=== PATIENT | female | born 2000 | race Caucasian/White ===

== ENCOUNTER 2020-04-03 13:42 | Outpatient (REF) | payer OTHER, SELFPAY ==
[2020-04-04 09:41] LABS: Rubeola IgG (Measles) >300.00 AU/mL
[2020-04-04 12:46] LABS: Rubella IgG Antibody 1.55 index
[2020-04-05 05:41] LABS: HBS Num1 0.87 mIU/mL (0-7.99); HBc Num1 0.11 S/CO (0.00-0.79); HBsAGNum1 0.22 S/CO (0.00-0.99); Hepatitis B Core Antibody Nonreactive (Nonreactive); Hepatitis B Surface Antigen Negative (Negative); ~Hepatitis B Surface Antibody NONREACTIVE (Nonreactive)
== END 2020-04-03 13:43 | disposition home or self-care (01) ==
LOC: HO.HMGCLDS 13:42
PROVIDERS: PCP Internal Medicine; Visit Provider Hospitalist
DX: Z00.00 Encounter for general adult medical examination without abnormal findings (principal)
CPT/HCPCS: 86704; 86706; 86735; 86762; 86765; 86787; 87340

== ENCOUNTER 2023-03-07 12:26 | Outpatient (AMB) | payer OTHER, SELFPAY ==
--- NOTE | 2023-03-07 12:40 | MHC.OFFWIV ---
Intake Vital Signs 03/07/23 12:42 Weight 88.904 kg BP 120/80 Blood Pressure Location Lt brachial Position Sitting Pulse 83 Pulse Source Pulse Oximeter Pulse Oximetry (%) 98 Oxygen Delivery Method Room Air Intake Visit Reasons: EST/ BV? Intake Note: Patient here because she believes she has BV, she has been experiencing itchyness and discharge which started yesterday. Patient Tobacco Use Status: Never used Tobacco Allergies No Known Allergies Allergy (Verified 03/07/23 12:43) Do you need a note to return to daycare/school/sports/work: No HPI HPI Comments History of Present Illness Details 1308 22-year-old female presents with a few days of vaginal discharge, white, thick, patient thinks it is BP she has had a before. Also reports some associated itchiness. Denies concerns for STDs. Denies new soaps. Denies fevers, chills, nausea, vomiting, abdominal pain, chance of , headache, vision changes, dizziness and weakness. Physical exam benign Concern for yeast infection versus BV or both. Based off patient history and physical exam lower suspicion for STD. Unlikely . Unlikely cellulitis Plan metronidazole, Diflucan. Educated patient on diagnosis and treatment plan, answered all question, patient verbalizes understanding. At this time patient will be discharged home, advised to return with new or worsening symptoms. Educated on worrisome signs and symptoms and when to return. At this time I feel comfortable discharge home. [facility] Social History Patient Tobacco Use Status: Never used Tobacco Review of Systems Const Details: Constitutional : No Weight loss, No Fever, No Chills, No Fatigue, No Malaise ENT/Mouth : No sore throat, No Rhinorrhea Eyes: No Eye Pain, No Swelling, No Redness Cardiovascular : No Chest Pain, No SOB, No Dyspnea on Exertion, No Orthopnea, No Edema, No Palpitations Respiratory : No Cough, No Sputum, No Wheezing Gastrointestinal : No Nausea, No Vomiting, No Diarrhea, No Constipation, No abdominal Pain, No Hematochezia, No Melena, + vaginal dc Genitourinary : No Dysuria, No Urinary Frequency, No Hematuria, Musculoskeletal : No joint pain, No Myalgias, No Joint Swelling Skin : No Skin Lesions, No rash Neuro : No Weakness, No Numbness, No Dizziness, No Headache Psych : No Anxiety/Panic, No Depression All other systems reviewed and are negative All systems reviewed & are unremarkable except as noted in HPI and below Physical Exam Vital Signs: Last Vital Signs Pulse 83 03/07/23 12:42 BP 120/80 03/07/23 12:42 Pulse Ox 98 03/07/23 12:42 Oxygen Delivery Method Room Air 03/07/23 12:42 vss Appearance: Alert.? Oriented X3.? No acute distress.? Head: Normocephalic, atraumatic, no step-offs or deformities Eyes: Pupils equal, round and reactive to light.? CVS: Normal heart rate and rhythm.? Pulses normal.? Respiratory: No respiratory distress.? Breath sounds normal.? Abdomen: Soft and nontender.? Skin: Skin warm and dry.? Normal skin color.? Normal skin turgor.? Extremities: No lower extremity edema.? No calf ttp. 5/5 strength to bilateral upper and lower extremities Neuro: Oriented X 3.? No motor deficit.? No sensory deficit. CN 2-12 intact Sensitive exam: Deferred Assessment & Plan Assessment & Plan (1) Vaginal discharge: Code(s): N89.8 - Other specified noninflammatory disorders of vagina Plan Take your medications as prescribed. If you were prescribed antibiotics today, it is important that you take your medication to their entirety, do not skip any doses, do not finish them early. Follow-up with your primary care provider this week. Return to the emergency department with new or worsening symptoms. Such as fevers, chills, chest pain, shortness of breath, nausea, vomiting, dizziness, headache, vision changes, lethargy In case of emergency call 911 Orders: Orders Bacterial Vaginosis Panel Today N89.8 - Other specified noninflammatory disorders of vagina Medications: New metronidazole 500 mg PO BID 14 tabs 0RF 7 days fluconazole 150 mg PO Q3D 2 tabs 0RF 2 doses Coding Level of Care Code Est Pt Level 3 (12526) Diagnoses Vaginal discharge N89.8
[2023-03-07 12:42] VITALS: BP 120/80; PULSE 83; O2SAT 98
== END 2023-03-07 14:47 | disposition home or self-care (01) ==
PROVIDERS: PCP Internal Medicine; Visit Provider Physician Assistant
DX: N89.8 Other specified noninflammatory disorders of vagina (principal)
CPT/HCPCS: 99213

== ENCOUNTER 2023-03-07 16:18 | Outpatient (REF) | payer OTHER, SELFPAY ==
[2023-03-08 12:50] LABS: BV Int Neg Control Negative (Negative); BV Int Pos Control Positive (Positive)
== END 2023-03-07 16:19 | disposition home or self-care (01) ==
LOC: HO.LNP 16:18
PROVIDERS: Visit Provider Physician Assistant
DX: N89.8 Other specified noninflammatory disorders of vagina (principal)
CPT/HCPCS: 87480; 87510; 87660

== ENCOUNTER 2024-10-07 13:39 | Emergency (ER) | payer SELFPAY ==
--- NOTE | ~2024-10-07 | XR_ITS ---
EXAMINATION: XR CHEST CLINICAL INFORMATION: productive cough COMPARISON: None available. TECHNIQUE: 2 views of the chest were obtained. FINDINGS: No consolidation, pleural effusion or pneumothorax. No hyperinflation. Cardiomediastinal silhouette size is normal. Osseous structures are intact. XR/XR chest 2V IMPRESSION: No acute airspace disease. Negative exam. Electronically signed by: Jeff Nina MD 10/07/2024 02:21 PM EDT
[2024-10-07 13:54] VITALS: BP 117/79; PULSE 103; RESP 16; TEMP 36.6; O2SAT 100; BMI 30.7
--- NOTE | 2024-10-07 13:55 | ED_ITS ---
HPI - General Adult General Chief complaint: Upper Respiratory Symptoms Stated complaint: cough up green mucus Time Seen by Provider: 10/07/24 15:39 Source: patient, RN notes reviewed and old records reviewed Mode of arrival: ambulatory Limitations: no limitations History of Present Illness ED Provider: Shy [facility] narrative: Patient is a 24-year-old female presenting with complaint of coryza, hoarse voice, productive cough with yellow sputum since Friday. Denies fevers/chills but feels weak. No known sick contacts. Denies difficulty swallowing. MD complaint: cough Onset (ago): day(s) Related Data Previous Rx's ?Medication ?Instructions ?Recorded valacyclovir 500 mg tablet 500 mg PO BID 3 days #6 tabs 10/17/20 fluconazole 150 mg tablet 150 mg PO Q3D 2 doses #2 tabs 03/07/23 metronidazole 500 mg tablet 500 mg PO BID 7 days #14 tabs 03/07/23 Allergies Allergy/AdvReac Type Severity Reaction Status Date / Time No Known Allergies Allergy Verified 10/07/24 13:55 Review of Systems Review of Systems: As per HPI Yes all other systems are reviewed and are negative Constitutional: Constitutional: Reports as per HPI [facility] Social History Social History Patient Tobacco Use Status: Never used Tobacco Physical Exam ED Vital Signs: Vital Signs - 24 hr 10/07/24 13:54 Temperature 98 F Pulse Rate 103 H Respiratory Rate 16 Blood Pressure 117/79 Pulse Oximetry 100 Oxygen Delivery Method Room Air BMI result Body Mass Index 30.7 Vital signs have been reviewed and appear to be correct. Blood pressure normal. Heart rate slightly tachycardic. Respiratory rate normal. Temperature normal. Oxygen saturation normal. Const General: cooperative, healthy appearing and no acute distress Orientation/consciousness: oriented to person, oriented to place, oriented to time and patient oriented x3 Limitations: no limitations HENMT Head: Yes normocephalic and Yes atraumatic Ears: hearing grossly normal bilaterally, external ears normal, TM's normal bilaterally, EAC's normal, mastoids normal bilaterally and no periauricular adenopathy General nose exam: Normal external nose present and Normal nasal mucous membranes and turbinates present Face and sinus: Yes face symmetric Mouth: Normal oral and palatal mucosa present, lip normal, tongue normal, oropharynx normal, moist mucous membranes, no drooling and no trismus Throat: Yes tonsils normal and Yes uvula midline Eyes Pupils: Equal, round and reactive pupils present Neck Neck: Yes normal visual inspection, Yes no lymphadenopathy and Yes supple Resp Effort & Inspection: normal respiratory effort and able to speak in complete sentences Auscultation: clear to auscultation bilaterally Cardio Rate: regular rate Rhythm: regular rhythm Heart sounds: S1 normal heart sound present and S2 normal heart sound present GI Palpation (GI): Soft to palpation and nontender Auscultation: normoactive bowel sounds General: Yes no CVA tenderness Back/Spine/Pelvis Back: no CVA tenderness Skin General skin exam: elasticity normal and turgor normal Neuro General: oriented to person, oriented to place, oriented to time, patient oriented x3, moves all extremities, no focal motor deficits and CN's II-XI intact bilaterally Cranial nerves: Yes Equal, round and reactive pupils present Cognition (Neuro): normal cognition Extrem General: Yes full ROM, Yes no pedal edema and Yes no calf tenderness Psych Mental Status: mental status grossly normal Affect: normal affect Thought process: Normal thought process present Course Course Course Narrative: This is a rapid medical exam performed by Dione Begum NP: Additional HPI, ROS, PE not included below will be deferred to primary provider. Patient is a 24-year-old female presenting with complaint of coryza, hoarse voice, productive cough with yellow sputum since Friday. Denies fevers/chills but feels weak. Plan: strep and viral swabs, cxr Medical Decision Making Medical Decision Making MDM Narrative: Patient is a 24-year-old female presenting with complaint of coryza, hoarse voice, productive cough with yellow sputum since Friday. On exam patient is awake, A+Ox3, VS WNL, afebrile, normal neurological exam without focal deficits, physical exam findings as above. Given reported symptoms and physical exam findings, initial differential includes but is not limited to viral illness, COVID, flu, RSV, strep pharyngitis, bronchitis, pneumonia. Strep and viral swabs negative. X-ray chest notable for no evidence of pneumonia. My interpretation is in agreement with the radiologist's interpretation. Results discussed with patient and all questions answered. Advised Tylenol, ibuprofen, adequate rest, adequate fluid intake, discussed with patient that she can use nasal saline spray and gargle with warm salt water. Follow up with primary care provider as needed. Return precautions discussed. Patient verbalized understanding of and agreement with plan. Differential Diagnosis Differential Diagnoses: The differential diagnosis associated with the p resentation includes As per [facility] Admission/Observation Consideration of admission/observation: Escalation of care including admi ssion/observation considered Patient would have been admitted to the hospital had their work up had any findings where hospital admission was appropriate and their clinical presentation warranted hospital admission. Lab Data [facility] Lab Attestation statement: I reviewed the patient's lab results. as per [facility] Labs: Lab Results 10/07/24 Range/Units 14:02 Influenza Type A (PCR) NEGATIVE (Negative) Influenza Type B (PCR) NEGATIVE (Negative) RSV RNA Qual (PCR) NEGATIVE (Negative) SARS-CoV-2 RNA (RT-PCR) NEGATIVE (Negative) S. pyogenes GrpA MARY Negative (Negative) Independent Interpretation I performed an independent interpretation of an: Plain X-Ray Interpretation: No evidence of pneumonia on chest x-ray Radiology Impression Discussion of test interpretation with radiology: I have reviewed the radiologist's reading. Radiologist Impression: XR/XR chest 2V IMPRESSION: No acute airspace disease. Negative exam. External Record Review External record reviewed: Inpatient record, Office record and Outpatient record Discharge Plan Discharge Clinical Impression: Upper respiratory infection, viral Patient Disposition: Home, Self-Care Instructions: Upper Respiratory Infection (DC), Viral Syndrome (ED) Additional Instructions: You were evaluated in the emergency department today for sore throat and cough. Your Covid, flu, RSV, and strep tests were all negative. Your chest x-ray did not show evidence of pneumonia. Your symptoms are likely related to a viral illness which will resolve on its own with time and rest. You should ensure adequate fluid intake, and can use Tylenol 650 mg or ibuprofen 600 mg every 6 hours as needed for fever or discomfort. We also recommend using over the counter nasal saline spray to thin your mucous. Please follow-up with your primary care provider this week. Return to the emergency department if you develop chest pain, worsening shortness of breath, difficulty swallowing, fever 100.4? F or greater or any other concerning symptoms. Prescriptions: No Action M-M-R II (PF) 1,000-12,500 TCID50/0.5 mL recon soln 0.5 ml subcut ONCE Qty: 0.5 0RF valacyclovir 500 mg tablet 500 mg PO BID 3 Days Qty: 6 1RF fluconazole 150 mg tablet 150 mg PO Q3D 0 Days Qty: 2 0RF metronidazole 500 mg tablet 500 mg PO BID 7 Days Qty: 14 0RF Interventions: ED Discharge Assessment Last Done: 10/07/24 15:44 Print Language: Mexican
[2024-10-07 14:17] LABS: IDNOW Serial# 55D5AD1C
[2024-10-07 14:18] LABS: Strep A Nucleic Acid Negative (Negative)
[2024-10-07 14:50] LABS: Influenza A PCR NEGATIVE (Negative); Influenza B PCR NEGATIVE (Negative); Resp Syncy Virus RNA Qual PCR NEGATIVE (Negative); SARS COV2 PCR INHOUSE NEGATIVE (Negative)
[2024-10-07 15:44] VITALS: BP 104/63; PULSE 66; RESP 16; TEMP 36.6; O2SAT 100
--- OUTSIDE RECORDS SUMMARY | 2024-10-07 18:11 | XMS_ITS | Clinical Summary ---
Author Organization [facility] ity Address [address] [place] [address] Care Team Providers Care Washer Engineer Name Role Phone Ana Robles MD Primary Care Provider [phone] Surgical History Surgery Date Site/Laterality Comments WISDOM TOOTH EXTRACTION PROCEDURE: HISTORICAL WISDOM TEETH EXTRACTION Medical History Medical History Date Comments Myopia DX:Myopia Family History Medical History Relation Name Comments No Known Problems Brother Other: Gout Father No Known Problems Maternal Grandfather No Known Problems Maternal Grandmother Alcohol/Drug Mother drug abuse Breast cancer Neg Hx Colon cancer Neg Hx Relation Name Status Comments Brother Alive Father Alive Maternal Grandfather Other Maternal Grandmother Other Mother Alive Paternal Grandfather Other Paternal Grandmother Other Social History Tobacco Use Types Packs/Day Years Used Date Smoking Tobacco: Never Smokeless Tobacco: Never Alcohol Use Standard Drinks/Week Comments Yes 0 (1 standard drink = 0.6 oz pur e alcohol) Comments Unknown Sex and Gender Information Value Date Recorded Sex Assigned at Not on file Legal Sex Female 8:20 PM EST Gender Identity Not on file Sexual Orientation Not on file Obstetrics History Last Filed Vital Signs Vital Sign Reading Time Taken Comments Blood Pressure 110/66 07/21/2023 11:44 AM EST Pulse 68 07/21/2023 11:44 AM EST Temperature - - Respiratory Rate - - Oxygen Saturation - - Inhaled Oxygen Concentration - - Weight 84.2 kg (185 lb 9.6 oz) 07/21/2023 11:44 AM EST Height 154.9 cm (5' 1 ) 07/21/2023 11:44 AM EST Body Mass Index 35.07 07/21/2023 11:44 AM EST Plan of Treatment Health Maintenance Due Date Last Done Comments HPV Vaccines (1 - 3-dose series) 2014 Hepatitis B Vaccines (1 of 3 - 19+ 3-dose series) 2018 Depression Screening 06/01/2022 HIV Screening 06/01/2022 Hepatitis C Screening 06/01/2022 Social Influencers of Health Screening 06/01/2022 Cervical Cancer Screening: P ap Smear 04/17/2023 04/17/2020 COVID-19 Vaccine (1 - 2023-2 5 season) 2024 Influenza Vaccine (Season Ended) 2025 03/15/2021 DTaP,Tdap,and Td Vaccines (4 - Td or Tdap) 05/10/2031 05/10/2021, 10/02/2000, 1999 MMR Vaccines Completed 10/02/2000 HIB Vaccines Aged Out No longer eligi ble based on patient's age to complete this topic Hepatitis A Vaccines Aged Out No long er eligible based on patient's age to complete this topic IPV Vaccines Aged Out No longer eligi ble based on patient's age to complete this topic Meningococcal ACWY Vaccine Aged Out N o longer eligible based on patient's age to complete this topic Meningococcal B Vaccine Aged Out No l onger eligible based on patient's age to complete this topic Pneumococcal Vaccine: Pediatrics (0 to 5 Years) and At-Risk Patients (6 to 64 Years) Aged Out No longer eligible b ased on patient's age to complete this topic RSV Immunization Patients Under 20 months Aged Out No longer eligible b ased on patient's age to complete this topic Varicella Vaccines Aged Out No longer eligible based on patient's age to complete this topic Procedures Procedure Name Priority Date/Time Associated Diagnosis Comments PAP SMEAR Routine 04/17/2020 from Last 3 Months or Most Recently Relevant to Health Maintenance Results * Pap smear (04/17/2020) 04/17/2020 Narrative HISTORICAL TESTING LAB RESULTING AGENCY - 04/19/2020 11:10 AM EDT [id number] THINPREP PAP, IMAGED: NEGATIVE FOR SQUAMOUS INTRAEPITHELIAL LESION AND MALIGNANCY . CLUE CELLS ARE PRESENT. MARIBETH CARBAJAL(ASCP) (CASE ELECTRONICALLY SIGNED 04 19 2020) ADEQUACY: SATISFACTORY ENDOCERVICAL/TRANSFORMATION ZONE COMPONENT PRESENT. SOURCE: THINPREP PAP HPV IF ASCUS, CERVICAL, IMAGED CLINICAL INFORMATION: HPV IF DIAGNOSIS OF ASCUS. PAP HX NEG, NO LMP RECORDED [Z12.4, Z01.419] Juju BUCKLEY LAB CYTOLOGY ORDERABLES Fin al Result HISTORICAL TESTING LAB RESULTING AGENCY from Last 3 Months or Most Recently Relevant to Health Maintenance Care Teams Washer Engineer Relationship Specialty Start Date End Date Ana Robles MD PCP - General 10/13/23
== END 2024-10-07 15:59 | disposition home or self-care (01) ==
PROVIDERS: Registered Nurse Emergency; Emergency Provider Emergency Medicine; PCP Internal Medicine
DX: J06.9 Acute upper respiratory infection, unspecified (principal); R05.9 Cough, unspecified; Z03.818 Encounter for observation for suspected exposure to other biological agents ruled out
CPT/HCPCS: 0241U; 71046; 87651; 99282; 99283

== ENCOUNTER → 2024-10-07 13:56 | Outpatient (BNV) | payer OTHER, SELFPAY | PROVIDERS: PCP Internal Medicine; Visit Provider Radiology Diagnostic Radiology | DX: R05.9 Cough, unspecified (principal) | CPT/HCPCS: 71046 ==

== ENCOUNTER 2025-02-17 10:46 | Outpatient (AMB) | payer OTHER, SELFPAY ==
[2025-02-17 11:04] VITALS: BP 120/80; PULSE 63; TEMP 37; O2SAT 99
--- NOTE | 2025-02-17 11:04 | MHC.OFFWIV ---
Intake Vital Signs 02/17/25 11:04 Height 5 ft BMI Reason not done Patient refused/unable BP 120/80 Blood Pressure Location Lt brachial Position Sitting Pulse 63 Pulse Source Pulse Oximeter Temp 98.6 F Temp Source Oral Pulse Oximetry (%) 99 Oxygen Delivery Method Room Air Intake Visit Reasons: EP STD check, vaginal itching Intake Note: pt is here for STD, vaginal itching since yesterday morning Patient Tobacco Use Status: Never used Tobacco Allergies No Known Allergies Allergy (Verified 02/17/25 11:04) Do you need a note to return to daycare/school/sports/work: No HPI HPI Comments History of Present Illness Details History of Present Illness - The patient is a 24-year-old female presenting with vaginal discomfort. - The discomfort is described as an uncomfortable pressure without burning or itching. - The patient reports a slight vaginal discharge but no burning sensation during menstruation. - There is no history of increased urinary frequency or urgency. - The patient denies any nausea, vomiting, fever, or abdominal pain. - The patient is concerned about a possible sexually transmitted infection due to recent activity. - The patient has no history of similar symptoms. - She due for her period today. - She denies urinary frequency, urgency, dysuria, hematuria, vaginal discharge, odor, fever, chills, back pain. Physical Exam General: Cooperative, healthy appearing, comfortable, no acute distress and well developed Orientation: Patient oriented x3 Respiratory: Normal respiratory effort and able to speak in complete sentences. Clear to auscultation bilaterally Cardiovascular: Regular rate and rhythm. Normal S1 and S2 GI: Normal to inspection. Soft to palpation and nontender, non-distended. Skin: No rashes or lesions noted Patient was informed and verbally consented to the use of an ambient scribe for clinic note documentation during this visit. [facility] Social History Patient Tobacco Use Status: Never used Tobacco Review of Systems Const All systems reviewed & are unremarkable except as noted in HPI and below Physical Exam Vital Signs: Last Vital Signs Temp 98.6 F 02/17/25 11:04 Pulse 63 02/17/25 11:04 BP 120/80 02/17/25 11:04 Pulse Ox 99 02/17/25 11:04 Oxygen Delivery Method Room Air 02/17/25 11:04 Results AMB Urinalysis, Automated UA Leukoctes 15 David/uL Last Edit by Matt Swanson CMA on 02/17/25 11:36 UA Nitrite Negative Last Edit by Matt Swanson CMA on 02/17/25 11:36 UA Urobilinogen 0.2 mg/dL Last Edit by Matt Swanson CMA on 02/17/25 11:36 UA Protein 15 mg/dL Last Edit by Matt Swanson CMA on 02/17/25 11:36 UA pH 6.0 Last Edit by Matt Swanson CMA on 02/17/25 11:36 UA Blood 80 Sudhakar/uL Last Edit by Matt Swanson CMA on 02/17/25 11:36 UA Specific [place] 1.030 Last Edit by Matt Swanson CMA on 02/17/25 11:36 UA Ketone Negative Last Edit by Matt Swanson CMA on 02/17/25 11:36 UA Bilirubin 0 mg/dL Last Edit by Matt Swanson CMA on 02/17/25 11:36 UA Glucose 0 mg/dL Last Edit by Matt Swanson CMA on 02/17/25 11:36 AMB Test Urine AMB Test Urine Negative Last Edit by Matt Swanson CMA on 02/17/25 11:37 Results Reviewed Results Reviewed: Laboratory Last Values Urine pH (Auto) 6.0 02/17/25 11:13 Specific [place] (Auto) 1.030 02/17/25 11:13 Urine Protein (Auto) 15 mg/dL H* 02/17/25 11:13 Glucose (UA)(Auto) 0 mg/dL 02/17/25 11:13 Urine Ketones (Auto) Negative 02/17/25 11:13 Urine Blood (Auto) 80 Sudhakar/uL 02/17/25 11:13 Urine Nitrite (Auto) Negative 02/17/25 11:13 Urine Bilirubin (Auto) 0 mg/dL 02/17/25 11:13 Urine Urobilinogen (Auto) 0.2 mg/dL 02/17/25 11:13 Leukocyte Esterase (Auto) 15 David/uL H* 02/17/25 11:13 Tst Clinic Negative 02/17/25 11:13 Assessment & Plan Assessment & Plan (1) Pelvic pain: Code(s): R10.2 - Pelvic and perineal pain Plan Most likely UTI vs BV vs trich vs STD UA is +leuko, 2+blood HCG is negative Plan - Urinalysis shows signs of infection; send urine for culture to confirm diagnosis. - Await culture results before prescribing antibiotics. - Will send bacterial vaginosis panel - Test for gonorrhea and chlamydia. - Follow up with the patient once results are available. Orders: Orders CT NG by PCR Vag/Cerv Today Z13.9 - Encounter for screening, unspecified AMB Urinalysis Automated Today Z13.9 - Encounter for screening, unspecified Urine Culture Today N39.0 - Urinary tract infection, site not specified Bacterial Vaginosis Panel Today Z13.9 - Encounter for screening, unspecified AMB HCG Urine Test Today Z13.9 - Encounter for screening, unspecified Coding Level of Care Code Est Pt Level 3 (19742) Diagnoses Pelvic pain R10.2
--- OUTSIDE RECORDS SUMMARY | 2025-02-17 12:12 | XMS_ITS | Clinical Summary ---
Author Organization [facility] [address] [place] [address] [place] [id number] Phone Care Team Providers Care Supervisor Sandblaster Name Role Phone Ana Robles MD Primary Care Provider [phone] Surgical History Surgery Date Site/Laterality Comments WISDOM [...] of 3 - 19+ 3-dose series) 2018 HIV Screening 06/01/2022 Hepatitis C Screening 06/01/2022 Social Influencers of Health Screening 06/01/2022 Cervical Cancer Screening: P ap Smear 04/17/2023 04/17/2020 COVID-19 Vaccine (1 - 2023-2 5 season) 2024 Depression Screening 06/23/2024 Influenza Vaccine (#1) 2025 03/15/2021 DTaP,Tdap,and Td Vaccines (4 - [...] 5 Years) and At-Risk Patients (6 to 49 Years) Aged Out No longer eligible b [...] RESULTING AGENCY - 04/19/2020 11:10 AM EDT [id number] THINPREP PAP, IMAGED: NEGATIVE FOR SQUAMOUS INTRAEPITHELIAL LESION AND MALIGNANCY . CLUE CELLS ARE PRESENT. MARIBETH CARBAJAL(ASCP) (CASE ELECTRONICALLY SIGNED 04 19 2020) ADEQUACY: SATISFACTORY ENDOCERVICAL/TRANSFORMATION ZONE COMPONENT PRESENT. SOURCE: THINPREP PAP HPV IF ASCUS, CERVICAL, IMAGED CLINICAL INFORMATION: HPV IF DIAGNOSIS OF ASCUS. PAP HX NEG, NO LMP RECORDED [Z12.4, Z01.419] Juju Reynolds [facility] LAB CYTOLOGY ORDERABLES Fin al Result HISTORICAL TESTING LAB RESULTING AGENCY from Last 3 Months or Most Recently Relevant to Health Maintenance Insurance [facility] [employer] Care Teams Supervisor Sandblaster Relationship Specialty Start Date End Date Ana Robles MD PCP - General 10/13/23
== END 2025-02-17 12:07 | disposition home or self-care (01) ==
PROVIDERS: Visit Provider Physician Assistant Medical
DX: R10.2 Pelvic and perineal pain (principal)

== ENCOUNTER 2025-02-17 10:46 | Outpatient (REF) | payer OTHER, SELFPAY ==
[2025-02-17 14:54] LABS: Bacterial Vaginosis PCR POSITIVE (Negative); Candida Group PCR DETECTED (Not Detect); Candida glab krusei PCR NOT DETECTED (Not Detect); Trichomonas vaginalis PCR NOT DETECTED (Not Detect)
[2025-02-17 15:27] LABS: CT PCR NOT DETECTED (Not Detect.); NG PCR NOT DETECTED (Not Detect.)
== END 2025-02-17 10:47 | disposition home or self-care (01) ==
LOC: HO.LNP 10:46
PROVIDERS: Visit Provider Physician Assistant Medical
DX: R10.2 Pelvic and perineal pain (principal); Z32.02 Encounter for pregnancy test, result negative; Z13.89 Encounter for screening for other disorder; Z11.3 Encounter for screening for infections with a predominantly sexual mode of transmission; Z11.8 Encounter for screening for other infectious and parasitic diseases
CPT/HCPCS: 81515; 87491; 87591; 99212